=== PATIENT | male | born 1965 | race Caucasian/White ===

== ENCOUNTER 2016-11-21 09:35 | Emergency (ER) | payer OTHER ==
[~2016-11-21] VITALS: Ht 157.5 cm; Wt 75.0 kg
[2016-11-21 09:46] VITALS: Ht 157.5 cm; Wt 75.0 kg
--- NOTE | 2016-11-21 10:53 | ERD ---
ER Documentation Chief Complaint Date/Time DATE: 11/21/16 TIME: 10:52 Chief Complaint Pt with MORSE , b swollen eyes since this AM, homeless needs SW consult. HPI 52-year-old male previously healthy presenting with left periorbital and left- sided head pain. The pain started this morning. He noticed some swelling around his left eye. He denies any vision disturbance, dizziness, headache, earache, fever, chills. He denies any ocular pain with eye movement. No recent injuries. No foreign body sensation. No photophobia, nausea, vomiting. ROS All systems reviewed and are negative except as per history of present illness. Medications Home Meds Active Scripts Diphenhydramine Hcl* (Benadryl*) 25 Mg Cap, 25 MG PO Q6H Y for ITCHING, #14 CAP Prov:KRISTAL ARRIAGA MD 11/21/16 Clindamycin Hcl* (Clindamycin Hcl*) 300 Mg Capsule, 450 MG PO TID for 7 Days, CAP Prov:KRISTAL ARRIAGA MD 11/21/16 Ibuprofen* (Motrin*) 600 Mg Tab, 600 MG PO Q6H Y for PAIN AND OR ELEVATED TEMP, #30 TAB Prov:KRISTAL ARRIAGA MD 11/21/16 PMhx/Soc Medical and Surgical Hx: Unable to obtain Hx Alcohol Use: Yes Hx Substance Use: No Hx Tobacco Use: No Smoking Status: Unknown if ever smoked FmHx Family History: No diabetes Physical Exam Vitals Vital Signs Date Time Temp Pulse Resp B/P Pulse Ox O2 Delivery O2 Flow Rate FiO2 11/21/16 09:46 99.9 74 18 151/71 97 Physical Exam Const: Well-appearing, no apparent distress Head: Atraumatic No scalp swelling. Eyes: Normal Conjunctiva, PERRLA, EOMI. No proptosis. Left periorbital mild edema with minimal erythema. Somewhat tender to palpation of the left periorbital area. ENT: Normal External Ears, Nose and Mouth. Neck: Full range of motion..~ No meningismus. Resp: Clear to auscultation bilaterally Cardio: Regular rate and rhythm, no murmurs Abd: Soft, non tender, non distended. Normal bowel sounds Skin: No petechiae or rashes Back: No midline or flank tenderness Ext: No cyanosis, or edema Neur: Awake and alert and oriented 3, cranial nerves intact, strength and sensations intact in all 4 extremities, normal gait Psych: Normal Mood and Affect Results 24 hrs Current Medications Medications (Trade) Dose Ordered Sig/Burt Route PRN Reason Start Time Stop Time Status Last Admin Dose Admin Ibuprofen (Motrin) 600 mg ONCE ONCE PO 11/21/16 11:00 11/21/16 11:01 DC 11/21/16 11:34 Diphenhydramine HCl (Benadryl) 25 mg ONCE ONCE PO 11/21/16 11:00 11/21/16 11:01 DC 11/21/16 11:34 Procedures/MDM Patient is presenting with periorbital swelling, concerning for early periorbital cellulitis. I do not suspect orbital cellulitis at this time. His symptoms may also be due to an allergic reaction, however this is less likely. He is afebrile with stable vitals. I will start him on antibiotics and ibuprofen. Prescription for clindamycin given. Advised to return in 24-48 hours if symptoms are not improving or are worsening. Patient is amenable to the discharge plan. Departure Diagnosis: Primary Impression: Periorbital cellulitis of left eye Condition: KRISTAL Valentine MD Nov 21, 2016 10:52
[2016-11-21] MEDS ORDERED: IBUP-1542 PO (10:59)
[2016-11-21] MEDS ORDERED: BEN25 PO (10:59)
[2016-11-21] MEDS ORDERED: CLIN-73 PO (10:59)
[2016-11-21] MEDS ORDERED: DIPHENHYDRAMINE 25 MG CAP PO ONE (11:00)
[2016-11-21] MEDS ORDERED: IBUPROFEN 600 MG TAB PO ONE (11:00)
== END 2016-11-21 12:38 | disposition home or self-care (01) ==
LOC: E/R 09:35
DX: L03.213 Periorbital cellulitis (principal)
CPT/HCPCS: Z7502; Z7610; 99283